=== PATIENT | male | born 1945 | race Two or more races ===

== ENCOUNTER → 2020-01-08 | Outpatient (CLI) | payer MEDICARE, OTHER ==
--- NOTE | 2020-01-08 17:30 | KCIC ---
AP view of the abdomen Clinical indications: Renal calculus. FINDINGS: No radiopaque renal stone is evident. Vascular calcifications of the anatomic pelvis are seen. No obstructive bowel pattern is seen. Mild fecal retention is seen. IMPRESSION: No radiopaque renal stone is seen. Electronically signed by: Armin Robertson MD (01/08/2020 5:27 PM) [id number]
== END | disposition home or self-care (01) ==
LOC: KCIC 09:52
DX: N20.0 Calculus of kidney (principal); N28.89 Other specified disorders of kidney and ureter; K59.00 Constipation, unspecified; I87.8 Other specified disorders of veins
CPT/HCPCS: 74018

== ENCOUNTER → 2020-12-17 | Outpatient (CLI) | payer MEDICARE, OTHER ==
--- NOTE | 2020-12-17 17:33 | KCIC ---
XR ABDOMEN 1V History: History of left renal calculus. Comparison: Radiographs 01/08/2020. Technique: AP view of the abdomen. Findings: Bowel gas pattern: Normal. Free air: None. Abnormal calcifications: No nephrolithiasis identified. Pelvic vascular calcifications are present. Bones: Mild degenerative changes of the hips and lumbar spine. Other: None. Impression: 1. No ureterolithiasis identified. Electronically signed by: Ismael Be MD (12/17/2020 5:30 PM) [id number]
== END ==
LOC: KCIC 15:29
DX: N20.0 Calculus of kidney (principal); M47.816 Spondylosis without myelopathy or radiculopathy, lumbar region; M16.0 Bilateral primary osteoarthritis of hip
CPT/HCPCS: 74018